=== PATIENT | male | born 2005 | race Caucasian/White ===

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

== ENCOUNTER 2025-01-29 15:56 | Emergency (ER) | payer OTHER, SELFPAY ==
--- OUTSIDE RECORDS SUMMARY | 2025-01-29 15:58 | XMS_ITS | Clinical Summary ---
Author Organization [facility] Address [address] [place] [id number] Care Team Providers Care Law Office Assistant Name Role Phone Perla Kang MD Primary Care Provider Allergies Active Allergy Reactions Criticality Noted Date Comments Shellfish Containing Products Medications acetaminophen (TYLENOL) 325 mg tablet Take 2 tablets (650 mg total) by mouth every 6 (six) hours as needed for pain or fever 05/05/2023 Active Active Problems Problem Noted Date Diagnosed Date Bacteremia due to Streptococcus 04/30/2023 Assessment & Plan (05/04/2023 3:14 PM RENEWALS SPECIALIST): See Assessment & Plan under 'Cellulitis of right leg'. Assessment & Plan (05/03/2023 5:45 PM RENEWALS SPECIALIST): See Assessment & Plan under 'Cellulitis of right leg'. Cellulitis of right leg 04/29/2023 Assessment & Plan (05/04/2023 3:14 PM RENEWALS SPECIALIST): Gordon is an 18 y.o. male [facility] with right leg pain. He is currenlty being treated for RLE cellulitis and Streptococcus pyogenes bacteremia. MRI 05/02: cellulitis/myofascitis with [id number] abscess. S/p or for I/D on 05/01. Back to OR on 05/03 for [place] change/closure. Significant improvement in edema/erythema to RLE Plan: -Ortho and ID consulted -Ampicillin q6h (04/29-); s/p Clindamycin TID (04/30-05/03) -regular diet -penny Tylenol and prn Oxycodone -Miralax daily -PT evaluation -F/u blood cx, Final: 04/28 +group strep a, 04/29 & 04/30 Final No growth -F/u wound cx: rare strep pyogenes (group a strep) Assessment & Plan (05/03/2023 5:45 PM RENEWALS SPECIALIST): Gordon is an 18 y.o. male no spmh presenting to the ED with right leg pain. He is currenlty being treated for RLE cellulitis and Streptococcus pyogenes bacteremia. MRI 05/02: cellulitis/myofascitis with [id number] abscess. S/p or for I/D on 05/01. Back to OR on 05/03 for [place] change/closure. Significant improvement in edema/erythema to RLE Plan: -Ortho and ID consulted -04/29: Ampicillin q6h -04/30: Clindamycin TID -regular diet -NPO 05/03 at 0000 for planned OR -penny Tylenol and prn Oxycodone -Miralax daily -PT evaluation -F/u blood cx, prelim: 04/28 +group strep a, 04/29 & 04/30 NGTD -F/u wound cx: rare strep pyogenes (group a strep) Assessment & Plan (05/02/2023 2:13 PM RENEWALS SPECIALIST): Gordon is an 18 y.o. male no spmh presenting to the ED with right leg pain. He is currenlty being treated for RLE cellulitis and Streptococcus pyogenes bacteremia. MRI 05/02: cellulitis/myofascitis with [id number] abscess. S/p or for I/D on 05/01. Back to OR on 05/03 for [place] change/closure. Significant improvement in edema/erythema to RLE Plan: -Ortho and ID consulted -04/29: Ampicillin q6h -04/30: Clindamycin TID -regular diet -MIVF while NPO -NPO while MRI results pending -penny Tylenol and prn Oxycodone -Miralax daily -PT evaluation -F/u blood cx, prelim: 04/29 +group strep a, 04/30 NGTD Assessment & Plan (05/01/2023 1:36 PM RENEWALS SPECIALIST): Gordon is an 18 y.o. male no spmh presenting to the ED with right leg pain. He is currenlty being treated for RLE cellulitis and Streptococcus pyogenes bacteremia. MRI today for ongoing fevers, and minimal improvement to erythema/edema in RLE. Plan: -Ortho and ID consulted -04/29: Ampicillin q6h -04/30: Clindamycin TID -MIVF -MRI today RLE -NPO while MRI results pending -PRN Tylenol and Oxycodone -PT evaluation -F/u blood cx, prelim: 04/29 +group strep a, 04/30 NGTD Assessment & Plan (04/30/2023 12:26 PM RENEWALS SPECIALIST): Gordon is an 18 y.o. male no spmh presenting to the ED with right leg pain. He was seen 04/26 to rule out c/f a DVT to RLE. Symptoms started 04/26, noted to have swelling, redness and increase in pain. Pain is worse in ankle and calf. No known injury or trauma. Patient states he woke up on 04/27 am with pain in his leg and pain with bearing weight. On the morning of 04/28 he woke up with significant increase in swelling and redness and his PCP recommended ED. WBC: 18.5. No effusion on XR. No DVT on US although viewed to popliteals. More concern for soft tissue infection. Blood culture pending. Increased ROM without pain and sent home with Clindamycin.Presented to the ED on 04/29 due to positive preliminary blood cultures, growing gram positive cocci in pairs and chains. Repeat blood cultures pending. WBC increased to 26.7, CRP 334 and ESR 14. UA concerning for dehydration. Ortho consulted and does not recommend further imaging at this time. Plan: -Ortho and ID consulted -04/29: Ampicillin q6h -04/30: Clindamycin TID -MIVF -s/p scheduled Toradol, dc due to renal function -PRN Tylenol and Oxycodone -Consider PT/OT -Consider imaging (CT/MRI) if exam changes -F/u blood cx, prelim: +group strep a Assessment & Plan (04/29/2023 4:51 PM RENEWALS SPECIALIST): Gordon is an 18 y.o. male no spmh presenting to the ED with right leg pain. He was seen 04/26 to rule out c/f a DVT to RLE. Symptoms started 04/26, noted to have swelling, redness and increase in pain. Pain is worse in ankle and calf. No known injury or trauma. Patient states he woke up on 04/27 am with pain in his leg and pain with bearing weight. On the morning of 04/28 he woke up with significant increase in swelling and redness and his PCP recommended ED. WBC: 18.5. No effusion on XR. No DVT on US although viewed to popliteals. More concern for soft tissue infection. Blood culture pending. Increased ROM without pain and sent home with Clindamycin.Presented to the ED on 04/29 due to positive preliminary blood cultures, growing gram positive cocci in pairs and chains. Repeat blood cultures pending. WBC increased to 26.7, CRP 334 and ESR 14. UA concerning for dehydration. Ortho consulted and does not recommend further imaging at this time. MDM: cellulitis of the right leg most likely due symptoms of erythema and edema to RLL. Can consider effusion, xray non concerning for effusion. Negative US concerning for DVT. Consider osteomyelitis, however exam is reassuring. Will continue to monitor exam, labs and fever curve. Plan: -Consult to Ortho, no further imaging/no npo at night for re eval -ID consulted -Ampicillin q6h -MIVF -Scheduled Toradol x 5 doses -PRN Tylenol -Consider PT/OT -Consider imaging (CT/MRI) if exam changes -F/u blood cx, prelim: +group strep a Abscess of right leg 04/29/2023 Assessment & Plan (05/04/2023 3:15 PM RENEWALS SPECIALIST): See Assessment & Plan under 'Cellulitis of right leg'. Assessment & Plan (05/03/2023 5:45 PM RENEWALS SPECIALIST): See Assessment & Plan under 'Cellulitis of right leg'. Quadricep tightness 06/19/2017 Hamstring tightness of both lower extremities Plantar fasciitis 08/15/2014 Acquired contracture of Achilles tendon 08/16/19 15 Pains, foot 08/11/2014 Resolved Problems Problem Noted Date Diagnosed Date Resolved Date CASTRO (acute kidney injury) 04/30/2023 Assessment & Plan (05/03/2023 5:45 PM RENEWALS SPECIALIST): Gordon's deputy city clerk was 1.6 on 04/29, UA at the time showed 1.03 spec grav, 3+ protein, and 21-50 hyaline casts with james colored urine. RFP improved with .91 deputy city clerk. Urine discoloration has resolved. Assessment & Plan (05/02/2023 2:14 PM RENEWALS SPECIALIST): Gordon's deputy city clerk was 1.6 on 04/29, UA at the time showed 1.03 spec grav, 3+ protein, and 21-50 hyaline casts with james colored urine. RFP improved with .91 deputy city clerk. Urine discoloration has resolved. Assessment & Plan (05/01/2023 1:24 PM RENEWALS SPECIALIST): Gordon's deputy city clerk was 1.6 on 04/29, UA at the time showed 1.03 spec grav, 3+ protein, and 21-50 hyaline casts with james colored urine. RFP improved with 1.09 deputy city clerk. Urine discoloration has resolved Plan -RFPs Daily -Avoid NSAIDs -Continue IV fluids Assessment & Plan (04/30/2023 12:29 PM RENEWALS SPECIALIST): Gordon's deputy city clerk was 1.6, UA showed 1.03 spec grav, 3+ protein, and 21-50 hyaline casts. Stopped Toradol this morning. Urine is james color. CMP improved on 04/30, deputy city clerk is 1.31. Plan: -RFPs q8h until kidney's normalize -Avoid NSAIDs -Continue IV fluids Immunizations Immunization Administration Dates Next Due DTaP / IPV 06/30/2010 DTaP 5 Pertussis 07/05/2006, 6,2005,05/22 HPV, Quadrivalent 11/06/2020,10/04/2019 HPV9 11/17/2021 Hep A, Pediatric 05/20/2016,03/30/2007, 7 Hep B, Adolescent or Pediatric 2005,2005,2005 Hib (PRP-T) 07/05/2006,2005,2005 IPV 2005,2005,2005 MMR 03/31/2006 MMRV 06/30/2010 Meningococcal A,C,W,Y-TT (Ak a Menquadfi) 11/17/2021 Meningococcal MCV4P (Menactra) 05/20/2016 Pneumococcal Conjugate PCV 13 03/31/2006 ,02/22/2006,2005,05/20 Tdap 05/20/2016 Varicella 03/31/2006 Surgical History Surgery Date Site/Laterality Comments ABSCESS DRAINAGE Right Family History Medical History Relation Name Comments No Known Problems Father No Known Problems Mother Relation Name Status Comments Father Mother Social History Tobacco Use Types Packs/Day Years Used Date Smoking Tobacco: Never Passive Smoke Exposure: Never Smokeless Tobacco: Never Tobacco Cessation:Counseling Given: Not Answered Personal Safety Answer Date Recorded Have you ever been in or are you currently in a harmful physical or emotional relationship or is someone making you feel afraid or unsafe? Denies 05/01/2023 Sex and Gender Information Value Date Recorded Sex Assigned at Not on file Legal Sex Male 5:37 AM RENEWALS SPECIALIST Gender Identity Not on file Sexual Orientation Not on file Growth Chart Information Age Height Weight [id number] th Percentile BMI Percentile Head Circum Head Circum Percentile Date 18 years 181.2 cm (5' 11.34) 82.4 kg (181 lb 10.5 oz) 81.47%* 2023 18 years 185.4 cm (6' 1) 87.5 kg (192 lb 14.4 oz) 83.74%* 2023 18 years 87.5 kg (192 lb 14.4 oz) 2023 * [facility] (Boys, 2-20 Years) Last Filed Vital Signs Vital Sign Reading Time Taken Comments Blood Pressure 142/79 05/17/2023 7:58 AM CDT Pulse 77 05/17/2023 7:58 AM CDT Temperature 36.4 C (97.5 F) 05/17/2023 7:58 AM CDT Respiratory Rate 16 05/17/2023 7:58 AM CDT Oxygen Saturation 99% 05/17/2023 7:58 AM CDT Inhaled Oxygen Concentration - - Weight 82.4 kg (181 lb 10.5 oz) 05/17/2023 7:58 AM CDT Height 181.2 cm (5' 11.34) 05/17/2023 7:58 AM C DT Body Mass Index 25.1 05/17/2023 7:58 AM CDT Body Mass Index Percentile 81.47% 05/17/2023 7:5 8 AM CDT Growth Chart: [facility] (Boys, 2-2 0 Years) Plan of Treatment Health Maintenance Due Date Last Done Comments Depression Screening 2005 Hepatitis C Screening 2005 Meningococcal B Vaccine (1 of 2 - Standard) 2021 Regular Well Visit/Exam 18-64 2023 Covid-19 Vaccine ( - season) 2024 04/02/2021, 03/12/2021 Influenza Vaccine (#1) 2024 DTaP/Tdap/Td Vaccine (7 - Td or Tdap) 05/20/2026 05/20/2016, 06/30/2010, 07/05/2006, Additional history exists Hepatitis B Screening Completed 2005 , 2005, 2005 Pneumococcal vaccine <65 Aged Out 007, 02/22/2006, 2005, Additional history exists No longer eligible based on patient's age to complete this topic Varicella Vaccines Completed 06/30/2010, 03/31/2006 HPV Vaccines Completed 11/17/2021, 09/0 05/2020, 10/04/2019 Meningococcal Vaccine Completed 11/17/2021, 017 Insurance [facility] CHOICE [facility]US [facility] H[facility]/PPO Address: [address] [place] [id number] [facility] CHOICE PLUS [facility] H[facility]/PPO Address: [address] [place] [id number] Advance Directives For more information, please contact: [phone] * Full Code (Latest Code Status on File) Date Activated Date Inactivated Comments 05/01/2023 7:12 PM 05/05/2023 4:25 PM * Full Code Date Activated Date Inactivated Comments 04/29/2023 3:43 PM 05/01/2023 7:12 PM Care Teams Law Office Assistant Relationship Specialty Start Date End Date Perla Kang MD PCP - General 06/26/17
--- OUTSIDE RECORDS SUMMARY | 2025-01-29 15:58 | XMS_ITS | Encounter Summary ---
Author Organization [facility] Address [address] Attn: Epic Prelude ADT TENISHA ARRIAGA [address] Care Team Providers Care Wirer Helper Name Role Phone Unavailable Primary Care Provider Unavailabl e Encounter Details Date Type Department Care Team (Late st Contact Info) Description 2005 Inpatient Historical Maik Cota MD [address] [place] [address] Ed Moyer MD [facility] [place] [address] ODIN BORN IN HOSP-NO C/DELIVERY (Primary Dx) Social History Tobacco Use Types Packs/Day Years Used Date Smoking Tobacco: Never Assessed Sex and Gender Information Value Date Recorded Sex Assigned at Not on file Legal Sex Male 5:09 AM PACKING INSPECTOR Gender Identity Not on file Sexual Orientation Not on file documented as of this encounter Plan of Treatment Not on file documented as of this encounter Procedures Procedure Name Priority Date/Time Associated Diagnosis Comments BILIRUBIN TOTAL Routine 2005 5:00 AM PACKING INSPECTOR BILIRUBIN TOTAL Routine 2005 4:00 AM PACKING INSPECTOR CBC WITH DIFFERENTIAL Routine 2005 12:57 AM PACKING INSPECTOR CBC WITH DIFFERENTIAL Routine 2005 12:57 AM PACKING INSPECTOR CBC WITH DIFFERENTIAL Routine 2005 12:57 AM PACKING INSPECTOR documented in this encounter Results * BILIRUBIN TOTAL (2005 5:00 AM PACKING INSPECTOR) BILIRUBIN TOTAL 10.6 1.5 - 12.0 mg/dL INTERFACE SYSTEM 2005 5:00 AM PACKING INSPECTOR Krishportermery Figueroa CHEMISTRY ORDERABLES Final Resul t Performing Organization Address [facility] Phone Number INTERFACE SYSTEM Refer to clinic/hospital department * (ABNORMAL) BILIRUBIN TOTAL (2005 4:00 AM PACKING INSPECTOR) Pathologist [facility] BILIRUBIN TOTAL 16.0(AA) 1.5 - 12.0 mg/dL INTERFACE SYSTEM Comment:Results called to Georgina mendiola at 2005 5:07 AM and read back verified. 2005 4:00 AM PACKING INSPECTOR Shanemadeleine Garvinmichelle CHEMISTRY ORDERABLES Final Resul t Performing Organization Address [facility] Phone Number INTERFACE SYSTEM Refer to clinic/hospital department * (ABNORMAL) CBC WITH DIFFERENTIAL (2005 12:57 AM PACKING INSPECTOR) Pathologist [facility] NEUTROPHIL ABSOLUTE 8.90 K/uL INTERFACE SYSTEM LYMPHOCYTE ABSOLUTE 7.12 K/uL INTERFACE SYSTEM MONOCYTE ABSOLUTE 1.07 K/uL IN TERFACE SYSTEM EOSINOPHIL ABSOLUTE 0.53 K/uL INTERFACE SYSTEM BASOPHILS ABSOLUTE 0.00 K/uL INTERFACE SYSTEM NEUTROPHILS, SEG 49 16 - 60 % INT ERFACE SYSTEM BANDS 1 0 - 4 % INTERFACE SYSTEM LYMPHOCYTES 39 20 - 70 % INTERFAC E SYSTEM MONOCYTES 6 0 - 7 % INTERFACE SYSTEM EOSINOPHILS 3 0 - 8 % INTERFAC E SYSTEM BASOPHILS 0 0 - 1 % INTERFACE SYSTEM METAMYELOCYTE 1(H) <=0 % INTERF [place] SYSTEM ATYPICAL LYMPHOCYTE 1 0 - 5 % INTERFACE SYSTEM PLATELET EST. Consistent w/ count Normal INTERFACE SYSTEM ANISOCYTOSIS Slight INTERFA CE SYSTEM POIKILOCYTES Slight INTERFA CE SYSTEM MACROCYTES Slight INTERFACE SYSTEM POLYCHROMASIA Slight INTERF [place]AV[place] SYSTEM ACANTHOCYTES Slight INTERFA CE SYSTEM 2005 12:5 7 AM PACKING INSPECTOR Ed Moyer MD HEMATOLOGY ORDERABLES Final Res ult Performing Organization Address City/[facility] Co de Phone Number INTERFACE SYSTEM Refer to clinic/hospital department * (ABNORMAL) CBC WITH DIFFERENTIAL (2005 12:57 AM PACKING INSPECTOR) NRBC 3(H) <=0 /100 WBC INTERFACE SYSTEM 2005 12:5 7 AM PACKING INSPECTOR Ed Moyer MD HEMATOLOGY ORDERABLES Final Res ult Performing Organization Address [facility] de Phone Number INTERFACE SYSTEM Refer to clinic/hospital department * (ABNORMAL) CBC WITH DIFFERENTIAL (2005 12:57 AM PACKING INSPECTOR) WBC 17.8 5.0 - 30.0 K/uL INTERFACE SYSTEM RBC 5.97 3.90 - 6.00 M/uL INTERFACE SYSTEM HEMOGLOBIN 21.8 14.5 - 22.5 g/dL INTERFACE SYSTEM HEMATOCRIT 61.7 45.0 - 66.0 % INTERFACE SYSTEM MCV 103.4 88.0 - 123.0 fL INTERFACE SYSTEM MCH 36.5 34.0 - 40.0 pg INTERFACE SYSTEM MCHC 35.3(H) 29.0 - 35.0 % INTERFACE SYSTEM RDW 17.0(H) 11.5 - 14.5 % INTERFACE SYSTEM RDW-STDEV 63.7(H) 37.1 - 48.7 fL INTERFACE SYSTEM PLATELETS 283 140 - 350 K/uL INTERFACE SYSTEM MPV 11.0 9.3 - 12.4 fL INTERFACE SYSTEM 2005 12:5 7 AM PACKING INSPECTOR Ed Moyer MD HEMATOLOGY ORDERABLES Final Res ult Performing Organization Address City/[facility] Co de Phone Number INTERFACE SYSTEM Refer to clinic/hospital department documented in this encounter Visit Diagnoses Diagnosis Single liveborn, born in hospital, delivered without mention of delivery- Primary documented in this encounter
[2025-01-29 16:08] VITALS: BP 146/74; PULSE 68; RESP 18; TEMP 37; O2SAT 98
--- NOTE | 2025-01-29 16:27 | ED.WOUNDLAC ---
HPI - Wound/Laceration General Chief Complaint: Wound/Laceration Stated Complaint: cut foot Time Seen by Provider: 01/29/25 16:18 Source: patient, family (Mother) and RN notes reviewed Mode of arrival: ambulatory Limitations: no limitations History of Present Illness HPI narrative: 19-year-old male patient presents today with his mother. Was walking at home outside and was cut by a piece of metal fencing through his cloth shoe into the arch of his right foot just prior to arrival. Patient is not up-to-date on his tetanus vaccine. Currently pain free. He flushed with water prior to arrival. Related Data Allergies Allergy/AdvReac Type Severity Reaction Status Date / Time shellfish derived Allergy Rash Verified 01/29/25 16:11 PMFSH Past Medical History Medical History No significant medical problems Surgical History Surgical History No significant past surgical history No pertinent past surgical history Social History Social History Smoking status: Never smoker Alcohol intake: never Substance use: never Living arrangements: with family Occupation/Education: student Gender identity (if verbalized by the patient): Male Comments At time of signature, I have reviewed and agree with nursing past medical, surgical, social and family history unless otherwise noted. Please see nursing chart for further information. There is no relevant family history pertinent to the presenting complaint Exam Narrative: GENERAL: Well-appearing, well-nourished, and in no acute distress. HEAD: Normocephalic, atraumatic. EYES: EOMI. No redness or drainage. Conjunctivae normal. ENT: Mucous membranes pink and moist. NECK: Normal AROM. EXTREMITIES: Right foot: 2 cm full-thickness linear laceration to the arch of the foot. No active bleeding. Distal sensation intact. Capillary refill normal. Pedal pulse normal. Full AROM of the foot and toes SKIN: Warm, dry, no rash. Capillary refill normal. Normal skin turgor. NEURO: No focal deficits. Alert and oriented x3. Gait steady. PSYCH: Normal affect. No signs of depression or anxiety. Course Course Level of Care: Express Care Visit Vital Signs Vital signs: Vital Signs Temperature 98.6 F 01/29/25 16:08 Pulse Rate 68 01/29/25 16:08 Respiratory Rate 18 01/29/25 16:08 Blood Pressure 146/74 H 01/29/25 16:08 Pulse Oximetry 98 01/29/25 16:08 Oxygen Delivery Room Air 01/29/25 16:08 Temperature 98.6 F 01/29/25 16:08 Pulse Rate 68 01/29/25 16:08 Respiratory Rate 18 01/29/25 16:08 Blood Pressure 146/74 H 01/29/25 16:08 Pulse Oximetry 98 01/29/25 16:08 Oxygen Delivery Room Air 01/29/25 16:08 Reviewed Procedures Laceration Laceration 1: Date: 01/29/25 Time: 16:31 Site: lower extremity (right foot) Side (If applicable): right Size (cm): 2 Description: linear Depth: simple, single layer Local Anesthetic: lidocaine 1% Amount of anesthesia used (mL): 4 Pre-repair: wound explored and irrigated extensively ====== Skin Level ====== Skin layer closed with: nylon Size (cm): 4-0 Number of sutures: 5 Technique: simple, interrupted ====== Subcutaneous Layer ====== ====== Muscle Layer ====== ====== Tendon Layer ====== Dressing: Dressed with nonadherent dressing. Patient tolerated procedure well MDM - Wound/Laceration MDM Narrative Medical decision making narrative: 19-year-old male patient presents today with his mother. Was walking at home outside and was cut by a piece of metal fencing through his cloth shoe into the arch of his right foot just prior to arrival. Patient is not up-to-date on his tetanus vaccine. Currently pain free. He flushed with water prior to arrival. Upon arrival, 2 cm full-thickness linear laceration to the arch of the foot. No active bleeding. Distal sensation intact. Capillary refill normal. Pedal pulse normal. Full AROM of the foot and toes. Laceration irrigated wtih 250ml NS, then repaired successfully. Placed in postop shoe to prevent movement of the arch while walking. Care instructions given. Patient will be prescribed a course of Keflex to prevent infection. Patient agrees with plan. Vital signs stable. Anticipatory guidance given. Differential Diagnosis Differential diagnosis: Likely laceration, abrasion, avulsion of skin and other (Puncture wound) Critical Care Time Critical Care Time Critical Care Time: No Discharge Plan Discharge Clinical Impression: Laceration of foot, right Qualifiers: Encounter type: initial encounter Qualified Code(s): S91.311A - Laceration without foreign body, right foot, initial encounter Patient Disposition: Home Condition: Stable Instructions: Antibiotic Form, Laceration (DC) Additional Instructions: Your sutures need to be removed in 10 days. Wear the dressing that has been applied for the first 24 hours to allow a scab to start forming. After this, you may remove and wash as normal with soap and water. Do NOT wash with peroxide or alcohol. Do NOT apply antibiotic ointment. Do not submerge your sutures in standing water such as pools, hot tubs, or sinks until they are removed. Take tylenol or ibuprofen at home for pain, if able. Follow up with your PCP with any signs of infection such as redness, swelling, increased pain, or drainage. Wear the hard-soled shoe to help prevent movement of the arch of your foot. Take the Keflex as prescribed until gone. Patient Language: [place] Prescriptions: New cephalexin 500 mg capsule 500 mg PO Q6H 5 Days Qty: 20 0RF Follow-up/Referrals: Jorge Luis,Perla Cruz MD [Primary Care Provider] Time of Disposition: 17:05
[2025-01-29] MEDS: LIDOCAINE 1% LOCAL INJ 2 ML AMPUL 8 ML INFILTRATE (16:30)
[2025-01-29] MEDS: TETANUS,DIPHTHERIA,AC PERTUSSIS ADULT (0.5 ML) BOOSTRIX IM (17:03)
== END 2025-01-29 17:09 | disposition home or self-care (01) ==
PROVIDERS: Emergency Provider Nurse Practitioner; PCP Pediatrics Adolescent Medicine
DX: S91.311A Laceration without foreign body, right foot, initial encounter (principal); W45.8XXA Other foreign body or object entering through skin, initial encounter; Z23 Encounter for immunization
CPT/HCPCS: 12001; 90471; 90715; 99213; G0463; J2003